=== PATIENT | female | born 1995 | race Caucasian/White ===

== ENCOUNTER 2017-06-01 11:23 | Outpatient (CLI) | payer OTHER ==
[2017-06-02 23:00] LABS: Chlamydia by PCR Not Detected (NotDetected); GC by PCR Not Detected (NotDetected)
== END 2017-06-01 11:24 | disposition home or self-care (01) ==
LOC: MADLABBHPM 11:23
PROVIDERS: ATTEND Family Medicine
DX: Z01.419 Encounter for gynecological examination (general) (routine) without abnormal findings (principal)
CPT/HCPCS: 36415; 87480; 87491; 87510; 87591; 87660; 88142; G0123

== ENCOUNTER 2017-09-22 12:46 | Outpatient (CLI) | payer OTHER ==
--- NOTE | 2017-09-22 14:19 | RAD ---
TWO VIEWS RIGHT HAND: Date: 09-22-17 History: Chronic right hand pain without history of trauma. FINDINGS: There is no evidence of a fracture, dislocation, or other osseous abnormality involving the right brown nd. POS: [facility]
--- NOTE | 2017-09-22 14:21 | RAD ---
TWO VIEWS LEFT HAND: Date: 09-22-17 History: Chronic left hand pain without history of trauma. FINDINGS/IMPRESSION: No evidence of fracture, dislocation, or other osseous abnormality involving the left hand. POS: [facility]
--- NOTE | 2017-09-22 15:25 | RAD ---
TWO VIEWS RIGHT ANKLE: Date: 09-22-17 History: Chronic right ankle pain. FINDINGS: The ankle mortise is congruent. There is no evidence of a fracture or dislocation involving the righ t ankle. No other osseous abnormality. IMPRESSION: No acute osseous abnormality involving the right ankle. POS: [facility]
--- NOTE | 2017-09-22 15:59 | RAD ---
TWO VIEWS LEFT ANKLE: 09/22/17 HISTORY: Chronic left ankle pain without history of trauma. FINDINGS/IMPRESSION: There is no evidence of a fracture, dislocation, or other osseous abnormality. There are tiny foci o f increased density seen at the plantar aspect of the great toe as well as small toe which may actua lly be artifactual. This is not imaged on the lateral view. No other findings. IMPRESSION: No acute osseous abnormality demonstrated. POS: [facility]
== END 2017-09-22 12:47 | disposition home or self-care (01) ==
LOC: MADRAD 12:46
PROVIDERS: ATTEND Family Medicine
DX: M25.571 Pain in right ankle and joints of right foot (principal); M25.572 Pain in left ankle and joints of left foot; M79.641 Pain in right hand; M79.642 Pain in left hand